=== PATIENT | female | born 1960 | race Caucasian/White ===

== ENCOUNTER 2016-11-25 22:22 | Emergency (ER) | payer MEDICARE, OTHER ==
[2016-11-25 23:22] LABS: BASOPHIL 0.5 % (0-2); EOSINOPHIL 0.3 % (0-5); HCT 40.5 % (37.0-47.0); HGB 14.1 g/dl (12.5-16.0); MCH 31.8 pg (25.0-31.0); MCHC 34.8 g/dL (32.0-36.0); MCV 91.2 fL (78.0-100.0); MONOCYTE 5.3 % (0-12); MPV 9.7 fL (6.0-9.5); NEUTROPHIL 88.9 % (41-80); PLT 267 K/uL (150-400); RBC 4.44 M/uL (4.20-5.40); RDW 12.9 % (11.5-14.0); WBC 9.2 K/uL (4.0-10.5)
[2016-11-25 23:39] LABS: ALBUMIN 4.3 g/dL (3.5-5.0); BILIRUBIN - TOTAL 0.2 mg/dL (0.1-1.0); CREATININE 0.6 mg/dL (0.5-1.0); GLOBULIN (CALCULATION) 2.8 g/dL (2.2-4.2); POTASSIUM 3.7 mmol/L (3.5-5.1); TOTAL PROTEIN 7.1 g/dL (6.4-8.3)
[2016-11-26 01:11] LABS: LACTIC ACID 1.2 mmol/L (0.5-2.2)
[2016-11-26 01:40] LABS: BILIRUBIN NEGATIVE (NEGATIVE); BLOOD TRACE-INTACT Ery/uL (NEGATIVE); CLARITY CLEAR (CLEAR); COLOR YELLOW (YELLOW); GLUCOSE (U) NORMAL (NORMAL); KETONE (U) NEGATIVE (NEGATIVE); LEUKOCYTES NEGATIVE Leu/uL (NEGATIVE); NITRITE NEGATIVE (NEGATIVE); PROTEIN NEGATIVE (NEGATIVE)
[2016-11-26 01:58] LABS: BACTERIA TRACE; URINARY RBC RARE
[2017-03-16] MEDS ORDERED: LOPRESSOR50 MG PO (08:40)
[2017-03-16] MEDS ORDERED: INHALER (08:40)
[2017-03-16] MEDS ORDERED: ASPIRIN CHEWABL81 MG PO (08:40)
== END 2016-11-26 02:09 | disposition home or self-care (01) ==
LOC: FER 22:22
PROVIDERS: Emergency Medicine
DX: J06.9 Acute upper respiratory infection, unspecified (principal); E86.0 Dehydration; R82.90 Unspecified abnormal findings in urine; I10 Essential (primary) hypertension; J44.9 Chronic obstructive pulmonary disease, unspecified; K21.9 Gastro-esophageal reflux disease without esophagitis; F17.210 Nicotine dependence, cigarettes, uncomplicated; Z79.82 Long term (current) use of aspirin; Z79.899 Other long term (current) drug therapy
CPT/HCPCS: 36415; 71010; 80053; 81001; 83605; 84484; 85025; 85379; 87040; 87088; 87804; 87899; 93005; 94640; 94664; J2405

== ENCOUNTER 2016-11-30 21:07 | Emergency (ER) | payer MEDICARE, OTHER ==
[2016-11-30 22:44] LABS: BILIRUBIN 1+ mg/dL (NEGATIVE); BLOOD 2+ Ery/uL (NEGATIVE); CLARITY CLEAR (CLEAR); COLOR YELLOW (YELLOW); GLUCOSE (U) NORMAL (NORMAL); KETONE (U) 1+ (SMALL) mg/dL (NEGATIVE); LEUKOCYTES NEGATIVE Leu/uL (NEGATIVE); NITRITE NEGATIVE (NEGATIVE); PROTEIN 2+ mg/dL (NEGATIVE); SPECIFIC GRAVITY 1.015 (1.001-1.030)
[2016-11-30 22:51] LABS: BACTERIA 1+; URINARY WBC RARE
[2016-11-30 22:54] LABS: BASOPHIL 0.7 % (0-2); EOSINOPHIL 0 % (0-5); HCT 38.6 % (37.0-47.0); HGB 13.3 g/dl (12.5-16.0); LYMPHOCYTE 11.3 % (15-48); MCH 30.8 pg (25.0-31.0); MCHC 34.5 g/dL (32.0-36.0); MCV 89.4 fL (78.0-100.0); MONOCYTE 17.5 % (0-12); MPV 10.2 fL (6.0-9.5); NEUTROPHIL 70.5 % (41-80); PLT 155 K/uL (150-400); RBC 4.32 M/uL (4.20-5.40); RDW 13.1 % (11.5-14.0)
[2016-11-30 22:55] LABS: WBC 8.7 K/uL (4.0-10.5)
[2016-11-30 23:17] LABS: ALBUMIN 3.5 g/dL (3.5-5.0); BILIRUBIN - TOTAL 0.3 mg/dL (0.1-1.0); CREATININE 0.7 mg/dL (0.5-1.0); GLOBULIN (CALCULATION) 3.4 g/dL (2.2-4.2); POTASSIUM 3.1 mmol/L (3.5-5.1); TOTAL PROTEIN 6.9 g/dL (6.4-8.3)
[2017-03-16] MEDS ORDERED: ASPIRIN CHEWABL81 MG PO (08:40)
[2017-03-16] MEDS ORDERED: LOPRESSOR50 MG PO (08:40)
[2017-03-16] MEDS ORDERED: INHALER (08:40)
== END 2016-12-01 00:39 | disposition home or self-care (01) ==
LOC: FER 21:07
PROVIDERS: Emergency Medicine Emergency Medical Services
DX: J18.9 Pneumonia, unspecified organism (principal); E87.1 Hypo-osmolality and hyponatremia; E87.6 Hypokalemia; I10 Essential (primary) hypertension; I48.91 Unspecified atrial fibrillation; J44.9 Chronic obstructive pulmonary disease, unspecified; G40.909 Epilepsy, unspecified, not intractable, without status epilepticus; Z79.82 Long term (current) use of aspirin; Z79.899 Other long term (current) drug therapy
CPT/HCPCS: 36415; 71020; 80053; 81001; 85025; 87040; 93005; J1885; J2270; J2405